=== PATIENT | female | born 1945 | race Caucasian/White ===

== ENCOUNTER → 2017-05-06 | Outpatient (CLI) | payer MEDICARE, BC ==
[~2017-05-06] MED LIST: IOHEXOL 300MG/ML 150 ML BTL ONE; SOD CHLORIDE 0.9% 100 ML ONE
--- NOTE | 2017-05-07 08:51 | RADRPT ---
PROCEDURE: CT abdomen and pelvis with contrast. CLINICAL INDICATION: Abdominal pain TECHNIQUE: CT scan of the abdomen and pelvis without contrast was [facility] from the lung bases through the pubis symphysis. The patient was scanned after the uneventful intravenous administration of 90 cc of Omnipaque-300. Sagittal and coronal re formatted images were made. CTDI vol 11.24 mGy and DLP 592.43 mGy-cm. DICOM images are available. One of the following 3 does reduction techniques were used during this CT examination: 1) Automated exposure control 2) Adjustment of the mA +/- kV according to patient size or 3) Use of iterative reconstruction technique COMPARISON: None available FINDINGS: CT abdomen: The lung bases are remarkable for a 5 mm left posterior subpleural nodule. No focal infiltrates mass es or effusions are present. The heart size is normal. No pericardial or pleural effusion is present . The visualized liver demonstrates mild diffuse fatty infiltration without focal lesions present. T he spleen, pancreas, gallbladder, and bilateral adrenal glands are normal. The bilateral kidneys are normal. No evidence for hydroureteronephrosis or nephroureterolithiasis is present. The bilateral u reters are symmetric. The visualized colon demonstrates mild diverticulosis without evidence for acute diverticulitis or a ppendicitis. Mild vascular calcifications of the aorta is noted without aneurysmal dilatation. No evidence for pneumoperitoneum or ascites is present. No evidence for pathologic lymphadenopathy is noted. CT pelvis: The visualized urinary bladder is incompletely distended. The uterus and bilateral adnexa are normal . Mild dystrophic calcifications are present within the body of the uterus. No mass, lymphadenopathy , or free fluid is seen. There is no evidence of free air. The surrounding osseous structures are remarkable for degenerative changes of the imaged bilateral s acroiliac joints and spine.. Severe dextroscoliosis of the lumbar spine is present with the apex at L2-3. IMPRESSION: 1. 5 mm left posterior subpleural nodule. In accordance with the Fleischner Society Guidelines, no followup is needed in low risk patients. If patient is high risk, recommend followup chest CT in 6 -12 months. 2. Mild diverticulosis without evidence for acute diverticulitis or appendicitis. 3. Mild atherosclerotic vascular disease 4. Severe dextroscoliosis of the lumbar spine with generative changes present. RPTAT: HDC .Kaylynn Stockton MD, MD Date Time Electronically viewed and signed by .Kaylynn Stockton MD, MD on 05/07/2017 08:51 .C/
== END | disposition home or self-care (01) ==
LOC: C/S 13:19
PROVIDERS: ATTEND Internal Medicine
DX: K57.92 Diverticulitis of intestine, part unspecified, without perforation or abscess without bleeding (principal)
CPT/HCPCS: 74177; Q9967